=== PATIENT | female | born 1990 | race American Indian/Alaskan Native ===

== ENCOUNTER 2016-12-24 11:19 | Emergency (ER) | payer MEDICAID ==
[2016-12-24 11:23] VITALS: BMI 20.9
[2016-12-24 11:26] VITALS: TEMP 98.7
--- NOTE | 2016-12-24 11:46 | ED PDOC ---
Arrival/HPI - General Chief Complaint: Abdominal Pain Time Seen by Provider: 12/24/16 11:39 Historian: Patient - History of Present Illness Narrative History of Present Illness (Text): 12/24/16 11:35 A 26 year old G3:P1:A1, 8 week female, whose past medical history includes L ovarian cyst, presents to the emergency department complaining of lower abdominal pain which began last night. Patient reports pain is constant and slight more on the left side. She states initially it was crampy but became sharp. Patient notes some vaginal spotting yesterday but it is no longer present. She denies any recent trauma, fall, fever, symptoms or other complaints at this time. Patient mentions she finished a 7 day course of antibiotics yesterday, which she was prescribed for a yeast infection. The patient last had a ultrasound on 12/21/16, which showed a IUP, yolk sac and pole. Time/Duration: 24 hours Symptom Onset: Sudden Symptom Course: Unchanged Quality: Cramping, Other (sharp) Activities at Onset: Light Context: Work Past Medical History - Provider Review Nursing Documentation Reviewed: Yes - Psychiatric Hx Substance Use: No Family/Social History - Physician Review Nursing Documentation Reviewed: Yes Family/Social History: No Known Family HX Smoking Status: Never Smoked Hx Alcohol Use: No Hx Substance Use: No Allergies/Home Meds Allergies/Adverse Reactions: Allergies No Known Allergies Allergy (Verified 12/24/16 11:23) Home Medications: Home Meds Medication Instructions Recorded Confirmed Vit Calc,Iron,Folic 1 tab PO DAILY 12/24/16 12/24/16 [ Vitamins] Review of Systems - Physician Review All systems were reviewed & negative as marked: Yes - Review of Systems Constitutional: absent: Fevers, Other (trauma) Gastrointestinal: Abdominal Pain Genitourinary Female: Other (vaginal spotting yesterday). absent: Frequency, Urine Output Changes Physical Exam - Physical Exam Narrative Physical Exam (Text): Constitutional: No acute distress. Head: Normocephalic. Atraumatic. Eyes: PERRL. ENT: Moist mucous membranes. Neck: Supple. Cardiovascular: Regular rate. Chest: No tenderness. Respiratory: Clear to auscultation bilaterally. GI: Soft. L suprapubic tenderness. Nondistended. Back: No CVA tenderness. Musculoskeletal: No tenderness or swelling of extremities. Skin: No rash. Neurologic: Alert, no focal deficit. Vital Signs Reviewed: Yes Vital Signs Temp Pulse Resp BP Pulse Ox 12/24/16 11:23 98.7 F 98 H 16 124/79 100 Temperature: Afebrile Blood Pressure: Normal Pulse: Regular Respiratory Rate: Normal Appearance: Positive for: Well-Appearing, Non-Toxic, Comfortable Pain Distress: None Mental Status: Positive for: Alert and Oriented X 3 Medical Decision Making ED Course and Treatment: 12/24/16 11:35 Impression: A 26 year old female with lower abdominal pain and vaginal spotting. Differential Diagnosis include but are not limited to: threatened vs other vs UTI vs ovarian cyst vs ovarian torsion Plan: -- Transvaginal ultrasound -- Labs -- Urinalysis -- Reassess and disposition Progress Notes: 12/24/16 13:36 Trasvaginal Ultrasound: Creator : Trey Strong MD COMPARISON: None available. FINDINGS: UTERUS: Single Live intrauterine gestation. CRL equivalent to 8 weeks 1 day gestatioin. Gestational sac diameter equivalent to 7 weeks 2 days gestation. age (Ultrasound estimated): 7 weeks 5 days. Date of delivery (Ultrasound estimated) : 08/07/2017. Heart rate: 168 bpm. Brigitte-gestational hemorrhage: None. 3 mm yolk sac identified. Uterus measures 10.7 x 4.5 x 7.7 cm. No mass CERVIX: Cervix closed and measures 2.9 cm in length. RIGHT OVARY: Measures 2.9 x 1.7 x 2.7 cm. No mass. Normal flow. LEFT OVARY: Measures 2.2 x 1.5 x 2.0 cm. No mass. Normal flow. Complex left ovarian cyst with internal echoes/ debris, 1.1 x 1.4 x 1.5 cm. Followup with transvaginal pelvic ultrasound is advised. FREE FLUID: None. OTHER FINDINGS: None. IMPRESSION: Single live intrauterine gestation of approximately 7 weeks 5 days gestational age. No subchorionic hemorrhage. Cervix closed. Incidental 1.5 cm complex left ovarian cyst with internal echoes/debris. Followup with transvaginal ultrasound is advised. Patient in no distress, will f/u with OBGYN, Rh+, return to ER for worsening bleeding, pain, vomiting, dyspnea, dysuria. - Lab Interpretations Lab Results: 12/24/16 11:48 12/24/16 11:48 Lab Results 12/24/16 12:48: Blood Type Confirm B POSITIVE 12/24/16 11:48: Blood Type B POSITIVE, Antibody Screen Negative, BBK History Checked No verified bt 12/24/16 11:48: Beta HCG, Quant 65520.00 H 12/24/16 11:48: Sodium 135, Potassium 3.9, Chloride 101, Carbon Dioxide 26, Anion Gap 12, BUN 5 L, Creatinine 0.6, Est GFR ( Amer) > 60, Est GFR (Non -Af Amer) > 60, Random Glucose 87, Calcium 9.5, Total Bilirubin 0.6, AST 16, ALT 21, Alkaline Phosphatase 42, Total Protein 7.2, Albumin 4.3, Globulin 2.9, Albumin/Globulin Ratio 1.5 12/24/16 11:48: Urine Color Yellow, Urine Appearance Clear, Urine pH 7.5, Ur Specific [place] 1.015, Urine Protein Negative, Urine Glucose (UA) Negative, Urine Ketones Negative, Urine Blood Negative, Urine Nitrate Negative, Urine Bilirubin Negative, Urine Urobilinogen 0.2, Ur Leukocyte Esterase Negative 12/24/16 11:48: WBC 6.5, RBC 4.14, Hgb 12.3, Hct 35.9 L, MCV 86.7, MCH 29.7, MCHC 34.3, RDW 12.6, Plt Count 174, MPV 10.6, Gran % 64.8, Lymph % (Auto) 26.3, [place] % (Auto) 6.3 H, Eos % (Auto) 2.3, Baso % (Auto) 0.3, Gran # 4.21, Lymph # 1.7, [place] # 0.4, Eos # 0.2, Baso # 0.02 I have reviewed the lab results: Yes - RAD Interpretation Radiology Orders: 12/24/16 11:40 OB TRANSVAGINAL [US] Stat - Scribe Statement The provider has reviewed the documentation as recorded by the Lisaibnicolasa López Provider Scribe Attestation: All medical record entries made by the Scribe were at my direction and personally dictated by me. I have reviewed the chart and agree that the record accurately reflects my personal performance of the history, physical exam, medical decision making, and the department course for this patient. I have also personally directed, reviewed, and agree with the discharge instructions and disposition. Disposition/Present on Arrival - Present on Arrival Any Indicators Present on Arrival: No History of DVT/PE: No History of Uncontrolled Diabetes: No Urinary Catheter: No History of Decub. Ulcer: No History Surgical Site Infection Following: None - Disposition Have Diagnosis and Disposition been Completed?: Yes Diagnosis: Threatened , Ovarian cyst Disposition: HOME/ ROUTINE Disposition Time: 13:37 Patient Plan: Discharge Patient Problems: Current Active Problems Problem Status Onset Ovarian cyst Acute Threatened Acute Condition: STABLE Discharge Instructions (ExitCare): Threatened Miscarriage (ED), Ovarian Cyst ( ED) Referrals: [facility] Maico Req, [Primary Care Provider] - Follow up with primary Forms: WORK NOTE
[2016-12-24 12:05] LABS: ADD MANUAL DIFF? NO
[2016-12-24 12:12] LABS: BASO # 0.02 K/mm3 (0.0-2.0); BASO % 0.3 % (0.0-3.0); EOS # 0.2 (0.0-0.7); EOS % 2.3 % (1.5-5.0); GRAN # 4.21 (1.4-6.5); GRAN % 64.8 % (50.0-68.0); HEMATOCRIT 35.9 % (36.0-48.0); LYMPH # 1.7 (1.2-3.4); LYMPH % 26.3 % (22.0-35.0); MEAN CELL VOLUME 86.7 fL (80.0-105.0); MEAN CORPUSCULAR HEMOGLOBIN 29.7 pg (25.0-35.0); MEAN CORPUSCULAR HGB CONC 34.3 g/dl (31.0-37.0); MEAN PLATELET VOLUME 10.6 fl (7.0-11.0); MONO # 0.4 (0.1-0.6); MONO % 6.3 % (1.0-6.0); PH,URINE 7.5 (4.7-8.0); PLATELET COUNT 174 10^3/uL (120.0-450.0); RED CELL DISTRIBUTION WIDTH 12.6 % (11.5-14.5); URINE BILIRUBIN NEGATIVE (NEGATIVE); URINE BLOOD NEGATIVE (NEGATIVE); URINE GLUCOSE (UA) NEGATIVE (NEGATIVE); URINE KETONE NEGATIVE (NEGATIVE); URINE LEUKOCYTE ESTERASE NEGATIVE Leu/uL (NEGATIVE); URINE PROTEIN NEGATIVE mg/dL (<30 mg/dL); URINE UROBILINOGEN 0.2 E.U./dL (<1 E.U./dL); WHITE BLOOD COUNT 6.5 10^3/ul (4.5-11.0)
[2016-12-24 12:13] LABS: URINE APPEARANCE CLEAR (CLEAR); URINE COLOR YELLOW (YELLOW)
[2016-12-24 12:21] LABS: ALB/GLOB RATIO 1.5 (1.1-1.8); ALKALINE PHOSPHATASE 42 U/L (38-133); ALT/SGPT 21 U/L (7-56); AST/SGOT 16 U/L (15-39); BILIRUBIN,TOTAL 0.6 mg/dL (0.2-1.3); BLOOD UREA NITROGEN 5 mg/dL (7-21); CALCIUM 9.5 mg/dL (8.4-10.5); CARBON DIOXIDE 26 mmol/L (21-33); CHLORIDE 101 mmol/L (98-107); GFR AFRICAN-AMERICAN > 60; GLUCOSE,RANDOM 87 mg/dL (70-110); POTASSIUM 3.9 mmol/L (3.6-5.0); SODIUM 135 mmol/L (132-148); TOTAL PROTEIN 7.2 g/dL (5.8-8.3)
--- NOTE | 2016-12-24 13:36 | US ---
PROCEDURE: OB Pelvic Ultrasound HISTORY: vag bleed in , assess cervix COMPARISON: None available. FINDINGS: UTERUS: Single Live intrauterine gestation. CRL equivalent to 8 weeks 1 day gestatioin Gestational sac diameter equivalent to 7 weeks 2 days gestation age (Ultrasound estimated): 7 weeks 5 days Date of delivery (Ultrasound estimated) : 08/07/2017 Heart rate: 168 bpm. Brigitte-gestational hemorrhage: None. 3 mm yolk sac identified. Uterus measures 10.7 x 4.5 x 7.7 cm. No mass CERVIX: Cervix closed and measures 2.9 cm in length. RIGHT OVARY: Measures 2.9 x 1.7 x 2.7 cm. No mass. Normal flow. LEFT OVARY: Measures 2.2 x 1.5 x 2.0 cm. No mass. Normal flow. Complex left ovarian cyst with internal echoes/ debris, 1.1 x 1.4 x 1.5 cm. Followup with transvaginal pelvic ultrasound is advised. FREE FLUID: None. OTHER FINDINGS: None. IMPRESSION: Single live intrauterine gestation of approximately 7 weeks 5 days gestational age. No subchorionic hemorrhage. Cervix closed. Incidental 1.5 cm complex left ovarian cyst with internal echoes/debris. Followup with transvaginal ultrasound is advised.
[2016-12-24 15:07] VITALS: BP 120/74; PULSE 90; RESP 17; O2SAT 99
== END 2016-12-24 14:46 | disposition home or self-care (01) ==
LOC: MERGE 11:19 → ED 11:19
DX: O20.0 Threatened abortion (principal); O34.81 Maternal care for other abnormalities of pelvic organs, first trimester; N83.202 Unspecified ovarian cyst, left side; Z3A.08 8 weeks gestation of pregnancy

== ENCOUNTER 2016-12-28 08:58 | Emergency (ER) | payer MEDICAID ==
[2016-12-28 08:59] VITALS: BMI 20.9
[2016-12-28 09:16] VITALS: BP 120/89; PULSE 91; RESP 16; TEMP 98.1; O2SAT 99
--- NOTE | 2016-12-28 09:19 | ED PDOC ---
Arrival/HPI - General Chief Complaint: Abnormal Skin Integrity Time Seen by Provider: 12/28/16 09:02 Historian: Patient - History of Present Illness Narrative History of Present Illness (Text): 12/28/16 09:07 Ivelisse Lua is a 26 year old female G3:P1:A1, 8 week female, whose past medical history includes L ovarian cyst, who presents to the emergency department generalized itching since yesterday. Patient states that she takes Benadryl for the itching but symptoms come back once Benadryl wears off. Patient notes that she has had recent contact with her niece who had the coxsackievirus. Patient denies any worsening symptoms from previous visit, any abdominal pain, back pain, vaginal bleeding, nasal congestion, cough, or any other complaint at this time. Patient confirms that she is 8 weeks with sono from recent ED visit. PMD: None Time/Duration: 24 hours Symptom Onset: Gradual Symptom Course: Unchanged Severity Level: Moderate Activities at Onset: Light Context: Home Past Medical History - Provider Review Nursing Documentation Reviewed: Yes - Psychiatric Hx Substance Use: No Family/Social History - Physician Review Nursing Documentation Reviewed: Yes Family/Social History: No Known Family HX Smoking Status: Never Smoked Hx Alcohol Use: No Hx Substance Use: No Allergies/Home Meds Allergies/Adverse Reactions: Allergies No Known Allergies Allergy (Verified 12/28/16 09:13) Home Medications: Home Meds Medication Instructions Recorded Confirmed Vit Calc,Iron,Folic 1 tab PO DAILY 12/24/16 12/28/16 [ Vitamins] Review of Systems - Physician Review All systems were reviewed & negative as marked: Yes - Review of Systems Constitutional: absent: Fevers, Night Sweats Eyes: absent: Vision Changes ENT: absent: Hearing Changes Respiratory: absent: SOB Cardiovascular: absent: Chest Pain Gastrointestinal: absent: Abdominal Pain Genitourinary Female: absent: Dysuria, Frequency, Urine Output Changes Musculoskeletal: absent: Back Pain, Neck Pain Skin: Other (Generalized itching). absent: Rash, Pruritis Neurological: absent: Headache, Dizziness Endocrine: absent: Diaphoresis Hemo/Lymphatic: absent: Adenopathy Psychiatric: absent: Depression Physical Exam Vital Signs Reviewed: Yes Vital Signs Temp Pulse Resp BP Pulse Ox 12/28/16 09:10 98.1 F 91 H 16 120/89 99 Temperature: Afebrile Blood Pressure: Normal Pulse: Regular Respiratory Rate: Normal Appearance: Positive for: Well-Appearing, Non-Toxic, Comfortable Pain Distress: None Mental Status: Positive for: Alert and Oriented X 3 - Systems Exam Head: Present: Atraumatic, Normocephalic Pupils: Present: PERRL Extroacular Muscles: Present: EOMI Conjunctiva: Present: Normal Mouth: Present: Moist Mucous Membranes Neck: Present: Normal Range of Motion Respiratory/Chest: Present: Clear to Auscultation, Good Air Exchange. No: Respiratory Distress, Accessory Muscle Use Cardiovascular: Present: Regular Rate and Rhythm, Normal S1, S2. No: Murmurs Abdomen: Present: Normal Bowel Sounds. No: Tenderness, Distention, Peritoneal Signs Back: Present: Normal Inspection Upper Extremity: Present: Normal Inspection. No: Cyanosis, Edema Lower Extremity: Present: Normal Inspection. No: Edema Neurological: Present: GCS=15, CN II-XII Intact, Speech Normal Skin: Present: Warm, Dry, Normal Color. No: Rashes Psychiatric: Present: Alert, Oriented x 3, Normal Insight, Normal Concentration Medical Decision Making ED Course and Treatment: 12/28/16 09:07 Impression: 26 year old female complaining of generalized itching since yesterday. Differential Diagnosis include but are not limited to: Allergic dermatitis Plan: -- Rx Benadryl and Calamine Lotion -- Discharge Prior Visits: Notes and Lab results from previous visits were reviewed. Patient last seen in ED on 12/24/16 for lower abdominal pain which began the night before arrival. Patient was discharged home. - Scribe Statement The provider has reviewed the documentation as recorded by the Teo Canchola Provider Scribe Attestation: All medical record entries made by the Lisaibnicolasa were at my direction and personally dictated by me. I have reviewed the chart and agree that the record accurately reflects my personal performance of the history, physical exam, medical decision making, and the department course for this patient. I have also personally directed, reviewed, and agree with the discharge instructions and disposition. Disposition/Present on Arrival - Present on Arrival Any Indicators Present on Arrival: No History of DVT/PE: No History of Uncontrolled Diabetes: No Urinary Catheter: No History of Decub. Ulcer: No History Surgical Site Infection Following: None - Disposition Have Diagnosis and Disposition been Completed?: Yes Diagnosis: Genital pruritus Disposition: HOME/ ROUTINE Disposition Time: 09:31 Patient Plan: Discharge Condition: GOOD Discharge Instructions (ExitCare): Anaphylaxis (ED) Additional Instructions: Oliver Stoney, thank you for letting us take care of you today. Your provider was Dr. Forde. You were treated for Itchiness. The emergency medical care you received today was directed at your acute symptoms. If you were prescribed any medication, please fill it and take as directed. It may take several days for your symptoms to resolve. Return to the Emergency Department if your symptoms worsen, do not improve, or if you have any other problems. Please contact your doctor or call one of the physicians/clinics you have been referred to that are listed on the Patient Visit Information form that is included in your discharge packet. Bring any paperwork you were given at discharge with you along with any medications you are taking to your follow up visit. Our treatment cannot replace ongoing medical care by a primary care provider (PCP) outside of the emergency department. Thank you for allowing the [facility] team to be part of your care today. If you had an X-Ray or CT scan: A Radiologist will review the ED reading if any change in treatment is needed we will contact you. If you had a blood, urine, or wound culture: It will take several days for the results, if any change in treatment is needed we will contact you. If you had an STI test: It will take 48 hours for the results. Please call after 1 week if you have not heard back. Prescriptions: Calamine/Zinc Oxide [Calamine Lotion] 120 ml EXT 5XD PRN #1 bottle PRN Reason: Dry Skin DiphenhydrAMINE [Benadryl] 50 mg PO Q4 PRN #30 cap PRN Reason: Itching / Pruritus Referrals: [facility] Maico Rejoanna, [Primary Care Provider] - Follow up with primary Kadeem Paz MD [Staff Provider] - Follow up with primary Forms: [employer] (Uzbek), WORK NOTE
== END 2016-12-28 09:30 | disposition home or self-care (01) ==
LOC: ED 08:58
DX: L29.9 Pruritus, unspecified (principal)

== ENCOUNTER 2017-07-19 20:40 | Emergency (ER) | payer MEDICAID ==
[2017-07-19 20:40] VITALS: BMI 20.9
[2017-07-19 20:50] VITALS: BP 129/88; PULSE 89; RESP 18; TEMP 98.8; O2SAT 100
[2017-07-19] MEDS ORDERED: Morphine 2 mg/ml ISec IVP STA (21:01)
[2017-07-19] MEDS ORDERED: Morphine 2 mg/ml ISec ONE (21:05)
--- NOTE | 2017-07-19 21:13 | ED PDOC ---
Arrival/HPI - General Chief Complaint: Chest Pain Time Seen by Provider: 07/19/17 20:44 Historian: Patient - History of Present Illness Narrative History of Present Illness (Text): 07/19/17 21:08 A 27 year old female, 37 weeks , whose past medical history include , presents to the emergency department with a complaint of left sided chest pain. The patient states that she fell down the stairs 2 days ago and was evaluated at a different institution, where" x-rays of her entire left side were taken". The patient was informed that she had a "left shoulder fracture "and was advised to follow up with an orthopedic. The patient states that today , while shopping, she began to experience left sided chest pain. The patient denies fevers, chills, headache, dizziness, shortness of breath, dyspnea on exertion, cough, abdominal pain, nausea, vomiting, diarrhea, back pain, neck pain, urinary/bowel changes, new trauma or any other complaits. 07/19/17 23:46 Time/Duration: Other (Today) Symptom Onset: Sudden Symptom Course: Unchanged Activities at Onset: Rest Context: Home Past Medical History - Provider Review Nursing Documentation Reviewed: Yes - Psychiatric Hx Substance Use: No Family/Social History - Physician Review Nursing Documentation Reviewed: Yes Family/Social History: No Known Family HX Smoking Status: Never Smoked Hx Alcohol Use: No Hx Substance Use: No Allergies/Home Meds Allergies/Adverse Reactions: Allergies No Known Allergies Allergy (Verified 12/28/16 09:13) Home Medications: Home Meds Medication Instructions Recorded Confirmed Vit Calc,Iron,Folic 1 tab PO DAILY 12/24/16 07/19/17 [ Vitamins] Acetaminophen/Codeine 1 tab PO DAILY 07/19/17 07/19/17 [Tylenol/Codeine 300 MG/30 MG] Ferrous Sulfate [Feosol] 325 mg PO DAILY 07/19/17 07/19/17 Review of Systems - Physician Review All systems were reviewed & negative as marked: Yes - Review of Systems Constitutional: absent: Fevers, Night Sweats Respiratory: absent: SOB Cardiovascular: Chest Pain (Left-sided chest pain ). absent: FRANCIS Gastrointestinal: absent: Abdominal Pain, Stool Changes, Diarrhea, Nausea, Vomiting Genitourinary Female: absent: Urine Output Changes Musculoskeletal: absent: Back Pain, Neck Pain Neurological: absent: Headache, Dizziness Physical Exam Vital Signs Reviewed: Yes Vital Signs Temp Pulse Resp BP Pulse Ox 07/19/17 20:48 98.8 F 89 18 129/88 100 Temperature: Afebrile Blood Pressure: Normal Pulse: Regular Respiratory Rate: Normal Appearance: Positive for: Well-Appearing, Non-Toxic, Comfortable Pain Distress: None Mental Status: Positive for: Alert and Oriented X 3 - Systems Exam Head: Present: Atraumatic, Normocephalic Pupils: Present: PERRL Extroacular Muscles: Present: EOMI Conjunctiva: Present: Normal Mouth: Present: Moist Mucous Membranes Neck: Present: Normal Range of Motion Respiratory/Chest: Present: Clear to Auscultation, Good Air Exchange, Tender to Palpation (Left chest wall tenderness ). No: Respiratory Distress, Accessory Muscle Use Cardiovascular: Present: Regular Rate and Rhythm, Normal S1, S2. No: Murmurs Abdomen: Present: Normal Bowel Sounds. No: Tenderness, Distention, Peritoneal Signs Back: Present: Normal Inspection Upper Extremity: Present: Normal Inspection. No: Cyanosis, Edema Lower Extremity: Present: Normal Inspection. No: Edema Neurological: Present: GCS=15, CN II-XII Intact, Speech Normal Skin: Present: Warm, Dry, Normal Color. No: Rashes Psychiatric: Present: Alert, Oriented x 3, Normal Insight, Normal Concentration Medical Decision Making ED Course and Treatment: 07/19/17 21:18 Impression: A 27 year old female presents to the emergency department with left-sided chest pain. suspect pain 2/2 recent known fracture, however pe rib fx, pneumo not exluded. Plan: -- Morphine -- Reassess and disposition Prior Visits: Notes and results from previous visits were reviewed. Patient was last seen in the emergency department on 12/28/16. The patient was seen in the emergency department with a complaint of generalized itching. The patient was discharged home. Progress Notes: EKG: Ordered, reviewed, and independently interpreted the EKG. Rate : 91 BPM Rhythm : NSR Interpretation : No ST-T wave changes 07/19/17 21:18: Offered to repeat X-Ray procedures toeval previous fracture, rib fracure, pneumo, possible pe. Patient declined. Asked specifically for a small dose of morphine to help with pain. She states that she does not want the radiation for the baby. pt declines repeat imaging, advised cannot exclue rib fx , pneumo, pe. understands risk of worsening and . signs ama Leaving Against Medical Advice (AMA): The patient is choosing to leave against medical advice. I have personally explained to the patient that choosing to do so may result in permanent bodily harm or . I have discussed at great length that without further evaluation and monitoring there may be unforeseen circumstances and/or deterioration causing permanent bodily harm or as a result of their choice. The patient is alert, oriented, and shows the mental capacity to make clear decisions regarding the patients health care at this time. The patient continues to wish to leave against medical advice. In light of the patients decision to leave against medical advice, follow-up has been arranged and the patient is aware of the importance to following up as instructed. The patient has been advised that they should return to the emergency room immediately if they change their mind at any time, or if their condition begins to change or worsen in any way.. - EKG Interpretation Interpreted by ED Physician: Yes Type: 12 lead EKG - Medication Orders Current Medication Orders: Discontinued Medications Morphine Sulfate (Morphine) 2 mg IVP STAT STA Stop: 07/19/17 21:02 Last Admin: 07/19/17 21:09 Dose: 2 mg MAR Pain Assessment Document 07/19/17 21:09 SS (Rec: 07/19/17 21:10 SS [id number]) Pain Reassessment Is this a pain reassessment? No Sleep Is patient sleeping during reassessment? No Presence of Pain Presence of Pain Yes Pain Scale Used Pain Scale Used Numeric Location Left, Right or Bilateral Left Pain Location Body Site Breast Chest IVP Administration Document 07/19/17 21:09 SS (Rec: 07/19/17 21:10 [id number]) Charges for Administration # of IVP Administrations 1 - Scribe Statement The provider has reviewed the documentation as recorded by the Lisaibnicolasa Alvarado Provider Scribe Attestation: All medical record entries made by the Scribe were at my direction and personally dictated by me. I have reviewed the chart and agree that the record accurately reflects my personal performance of the history, physical exam, medical decision making, and the department course for this patient. I have also personally directed, reviewed, and agree with the discharge instructions and disposition. Disposition/Present on Arrival - Present on Arrival Any Indicators Present on Arrival: No History of DVT/PE: No History of Uncontrolled Diabetes: No Urinary Catheter: No History of Decub. Ulcer: No History Surgical Site Infection Following: None - Disposition Have Diagnosis and Disposition been Completed?: Yes Diagnosis: Chest pain, Shoulder injury Disposition: AGAINST MEDICAL ADVICE Disposition Time: 09:00 Condition: UNKNOWN Discharge Instructions (ExitCare): Chest Pain (ED), Chest Pain (DC), Arm Fracture in Adults (ED) Additional Instructions: please follow up with your doctor. return to er with worsening symptoms or concerns. Referrals: [facility] [Outside] - Follow up with primary Clau Diaz MD [Staff Provider] - Follow up with primary Primo Childers MD [Staff Provider] - Follow up with primary Forms: [employer] (Nepalese)
--- NOTE | 2017-07-20 10:02 | CARD ---
APPROVED REPORT EKG Measurement Heart [id number] <Conclusion> Normal sinus rhythm Normal ECG
== END 2017-07-19 21:22 | disposition left against medical advice (07) ==
LOC: ED 20:40
DX: R07.9 Chest pain, unspecified (principal); S49.92XA Unspecified injury of left shoulder and upper arm, initial encounter; W10.9XXA Fall (on) (from) unspecified stairs and steps, initial encounter; Z3A.37 37 weeks gestation of pregnancy
CPT/HCPCS: 93005; 96374; 99284; J2270